=== PATIENT | female | born 1935 | race Caucasian/White ===

== ENCOUNTER 2019-02-09 13:08 | Inpatient (IN) | payer MEDICARE ==
[~2019-02-09] VITALS: Ht 157.5 cm; Wt 53.1 kg
--- NOTE | 2019-02-09 13:23 | NUR ---
BIB [facility]. Patient unable to get off toilet and expressing interest in SNF placement. Patient reports failure to thrive, although home was very clean per [facility]. [facility] also states that PCP has arranged for home eval to determine what level of care she needs. C/O incontinence x 1 week. Placed on NIBP and pulse ox. Will continue to monitor.
--- NOTE | 2019-02-09 13:24 | NUR ---
Baltazar Varghese) [phone]. She has access to home and walker.
[2019-02-09] MEDS ORDERED: ERYTHROMYCIN OPHTH 0.5%, 1GM LEFTEYE ONE (14:00)
[2019-02-09 14:04] LABS: INTERNATIONAL NORMALIZED RATIO 1.14 (0.93-1.1); PROTHROMBIN TIME 11.9 Seconds (9.6-11.5)
[2019-02-09 14:06] LABS: ALANINE AMINOTRANSFERASE 28 U/L (12-78); ALBUMIN 3.1 g/dL (3.4-5.0); ANION GAP 10 mmol/L (5-15); CALCIUM 9.3 mg/dL (8.5-10.1); CHLORIDE 95 mmol/L (98-107); CREATININE 1.83 mg/dL (0.55-1.02)
[2019-02-09 14:10] LABS: ALKALINE PHOSPHATASE 89 U/L (45-117); BILIRUBIN,TOTAL 1.1 mg/dL (0.2-1.0); TOTAL PROTEIN 7.6 g/dL (6.4-8.2)
[2019-02-09 14:13] LABS: TROPONIN I 0.211 ng/mL (0.000-0.045)
--- NOTE | 2019-02-09 14:19 | NUR ---
EKG being performed by RANDELL Jama.
[2019-02-09 14:26] LABS: MEAN CORPUSCULAR HEMOGLOBIN 29.5 pg (27.0-34.8); MEAN CORPUSCULAR HGB CONC 30.7 g/dL (32.4-35.8); MEAN PLATELET VOLUME 9.2 fL (7.4-10.4); PLATELET COUNT 165 x10^3/uL (130-400)
[2019-02-09 14:51] LABS: MICROSCOPIC AUTO
[2019-02-09 14:56] LABS: CULTURE INDICATED? NO
[2019-02-09] MEDS ORDERED: ASPI-496 PO (15:04)
[2019-02-09] MEDS ORDERED: IRON1TAB60 PO (15:04)
[2019-02-09] MEDS ORDERED: LEVO25TA4 PO (15:04)
[2019-02-09 15:06] LABS: BASOPHILS # (AUTO) 0.01 x10^3/uL (0-0.1); BASOPHILS % (AUTO) 0 % (0-1); EOSINOPHILS % (AUTO) 0 % (1-7); LYMPHOCYTES # (AUTO) 0.68 x10^3/uL (1-3.4); LYMPHOCYTES % (AUTO) 10 % (22-44); MD SCAN; MONOCYTES # (AUTO) 0.64 x10^3/uL (0.2-0.8); MONOCYTES % (AUTO) 9 % (2-9); NEUTROPHILS % (AUTO) 81 % (42-75)
[2019-02-09 17:01] VITALS: BP 110/71
[2019-02-09] MEDS ORDERED: MULT-658 PO (17:04)
[2019-02-09] MEDS ORDERED: ONDANSETRON ODT 4 MG PO PRN (19:00)
[2019-02-09] MEDS ORDERED: ACETAMINOPHEN 325 MG TABLET PO PRN (19:00)
[2019-02-09] MEDS ORDERED: ZOLPIDEM 5MG TABLET PO PRN (19:00)
[2019-02-09] MEDS ORDERED: OXYcodone IR 5MG TABLET PO PRN (19:00)
[2019-02-09] MEDS ORDERED: KETOROLAC 30 MG/1 ML IV PRN (19:00)
[2019-02-09] MEDS ORDERED: FUROSEMIDE 40 MG/4 ML IV SCH (19:00)
[2019-02-09] MEDS ORDERED: DOCUSATE 100 MG CAPSULE PO PRN (19:00)
[2019-02-09 19:20] VITALS: BP 101/67
[2019-02-10 00:21] VITALS: BP 98/67
[2019-02-10] MEDS ORDERED: POTASSIUM CHLORIDE 10 MEQ TABLET.ER PO SCH (08:00)
[2019-02-10] MEDS ORDERED: LEVOTHYROXINE 25 MCG TABLET PO SCH (09:00)
== END 2019-02-10 05:10 | disposition expired ==
LOC: ED 14:34 → EDIP 14:35 → ED 15:05 → 5SO 16:05
PROVIDERS: ADMIT Internal Medicine; ATTEND Internal Medicine
PROC: 0T9B70Z Drainage of Bladder with Drainage Device, Via Natural or Artificial Opening (ICD-10-PCS; principal; 2019-02-09)
DX: I21.A1 Myocardial infarction type 2 (principal); J96.20 Acute and chronic respiratory failure, unspecified whether with hypoxia or hypercapnia; J81.0 Acute pulmonary edema; E46 Unspecified protein-calorie malnutrition; J81.1 Chronic pulmonary edema; J90 Pleural effusion, not elsewhere classified; D64.9 Anemia, unspecified; E03.9 Hypothyroidism, unspecified; E87.70 Fluid overload, unspecified; N28.9 Disorder of kidney and ureter, unspecified; R62.7 Adult failure to thrive; Z82.5 Family history of asthma and other chronic lower respiratory diseases; Z87.891 Personal history of nicotine dependence; Z66 Do not resuscitate; Z68.21 Body mass index [BMI] 21.0-21.9, adult
CPT/HCPCS: 36415; 71045; 80053; 81001; 83880; 84484; 85025; 85610; 93005; 99285; G0378; J1940